=== PATIENT | male | born 1995 | race Caucasian/White ===

== ENCOUNTER 2017-04-20 14:33 | Emergency (ER) | payer MEDICAID ==
[~2017-04-20] VITALS: Ht 175.3 cm; Wt 63.5 kg
[~2017-04-20 14:33] MED LIST: ALEVE220 M1 PO; KEFLEX 500MG.500 MG PO; LORTAB 5/3251 TAB PO
--- OUTSIDE RECORDS SUMMARY | 2017-04-20 14:57 | External Medical Summary Rpt | CCD ---
Author Author , MADHU LEUNG Address Unknown Phone [email or web address] Care Team Providers Care Roofing Sales Representative Name Role Phone NED MARINO Unavailable Unavailable TRACEY, TRACEY Unavailable Unavailable [facility] & Unavailable Unavailable DUBILIER, [facility] DUBILIER COMMUNITY ANESTH OF Unavailable Unavailable THE BLUE, COMM[facility]ITY ANESTH OF THE BLUE [facility] Unavailable Unavailable INC, [facility], Unavailable Unavailable [facility] Unavailable Unavailable IMAGING [facility], [facility] BERNADINE COLINDRES Unavailable Unavailable [facility], Unavailable Unavailable PLLC, [facility], [facility] CLAIR SELF Unavailable Unavailable JEY KHANNA Unavailable Unavailable Purpose Continuity of Care Document - 07-11-2016 through 2016 Problems Code Diagnosis DOS Provider Status G8918 OTHER ACUTE 07-28-2016 [facility] POSTPROCEDU INC RAL PAIN R1031 RIGHT LOWER 07-28-2016 [facility] PAIN INC R109 UNSPECIFIED 07-28-2016 [place] [facility] [id number] DISRUPTION 07-26-2016 [facility] WOUND [facility], UNSPECIFIED [facility] INITIAL ENCOUNTER Z720 TOBACCO USE 07-26-2016 [facility] INC K353 ACUTE 07-11-2016 [facility] APPENDICIT[facility]IANS, S WITH [facility] LOCALIZED PERITONITIS K3580 UNSPECIFIED 07-11-2016 [facility] ACUTE SOHA & APPENDICITI DUBILIER S K3589 OTHER ACUTE 07-11-2016 [facility] APPENDICITI GROUP S K37 UNSPECIFIED 07-11-2016 COMMUNITY ANESTH OF APPENDICITI THE BLUE S R072 PRECORDIAL 07-11-2016 [facility] PAIN PHYSICIANS, [facility] R079 CHEST PAIN 07-11-2016 [place] UNSPECIFIED [facility]ING ASS Medications Na ND Rx Da Fi Fi Am Da Di Ph RX Ph St me C No te ll ll ou ys ag ar # ys at rm s nt no ma ic us Or Da si cy ia de te s n re d HY 00 01 02 [address] 40 -1 -1 .0 00 L- ti OC 60 6- 7- 00 02 MA ve OD 12 20 20 23 RT ON 30 17 17 87 -A 1 02 PH CE AR TA MA SD CY NO PH #5 EN 91 5- 32 5 Procedures Procedure [place] [address] [facility] ABDOMEN & 7 [facility] PELVIS INC INC W/CONTRAS T MATERIAL FINAL G9551 BLANCA TRACEY REPR ABD 7 MEDICAL IMAG STS IMAGING W/O ASS INCIDNT FND LES NTD: FINAL G9638 BLANCA TRACEY REPORTS 7 MEDICAL W/O DOC IMAGING 1/MORE ASS DOSE REDUCTION [facility] G0378 [facility] OBSERVATI 7 [facility] ON INC INC SERVICE PER HOUR LEVEL III 10859 [facility] SURG 7 [facility] PATHOLOGY INC INC GROSS&SHIV ROSCOPIC EXAM LEVEL III 49080 CHIPPS BERNADINE SURG 7 SOHA & PATHOLOGY [facility] GROSS&SHIV ROSCOPIC EXAM RADIOLOGI 42787 [facility] COLE C EXAM 7 MEM H[facility] CHEST 2 INC INC VIEWS FRONTAL&L [facility] G0378 [facility] CO[facility] OBSERVATI 7 MEM [facility] [place] [address] [facility] LIPASE [place] [address] [facility] ABDOMEN & 7 MEM HOSP MEM [facility]OS[facility] PELVIS INC INC W/CONTRAS T MATERIAL URNLS DIP 05121 [facility] COLE 7 [facility] STICK/TAB INC INC [place] [address] [facility] TROPONIN 7 MEM H[facility]P [facility] QUANTITAT INC INC ARSEN BLOOD 02970 [facility] COLE COUNT 7 MEM [facility] COMPLETE INC INC AUTO&AUTO DIFRNTL WBC ECG 32520 [facility] MARINO ROUTINE 7 [facility] W/LEAST P 12 LDS I&R ONLY ANESTHESI 64430 [facility] 7 ANESTH INTRAPERI OF THE TONEAL BLUE LOWER ABD W/LAPS NOS LAPAROSCO 02950 [facility] CLOE PIC 7 MEM H[facility]P [facility] APPENDECT INC INC ELYSSA COMPREHEN 01147 [facility] LORENZ 7 [facility] HOS[facility] METABOLIC INC INC PANEL Encounters Encounter Start End Date Code Location Performer Type Date [facility] OUTPATIEN INC T EMERGENCY 51300 [facility] 7 7 [facility] DEPARTMEN INC T VISIT LOW/MODER SEVERITY HOSPITAL [facility] 7 [facility] OUTPATIEN INC T EMERGENCY 69752 ARI[facility] SELF 7 7 PHYSICIAN DEPARTMEN S, [facility] T VISIT MODERATE SEVERITY HOSPITAL [facility] 7 [facility] OUTPATIEN INC T EMERGENCY 84003 [facility] GONSALEZT 7 7 [facility] VISIT INC HIGH SEVERITY& THREAT FUNJ
--- OUTSIDE RECORDS SUMMARY | 2017-04-20 14:57 | External Medical Summary Rpt | CCD ---
Author Author , MADHU LEUNG Address Unknown Phone [email or web address] Care Team Providers Care Relocation Coordinator Name Role Phone NED MARINO Unavailable Unavailable TRACEY, TRACEY Unavailable Unavailable [facility] & Unavailable Unavailable DUBILIER, [facility] DUBILIER COMMUNITY ANESTH OF Unavailable Unavailable THE BLUE, COMMUNITY ANESTH OF THE BLUE [facility] Unavailable Unavailable INC, [facility], Unavailable Unavailable [facility] Unavailable Unavailable IMAGING ASS, [facility] BERNADINE COLINDRES Unavailable Unavailable [facility], Unavailable Unavailable PLLC, [facility], [facility] CLAIR SELF Unavailable Unavailable JEY KHANNA Unavailable Unavailable Purpose Continuity of Care Document - 07-11-2016 through 2016 Problems Code Diagnosis DOS Provider Status G8918 OTHER ACUTE 07-28-2016 [facility] POSTPROCEDU INC RAL PAIN R1031 RIGHT LOWER 07-28-2016 [facility] PAIN INC R109 UNSPECIFIED 07-28-2016 [place] [facility] PAIN IM[facility]ING ASS [id number] DISRUPTION 07-26-2016 [facility] W[facility], UNSPECIFIED [facility] INITIAL ENCOUNTER Z720 TOBACCO USE 07-26-2016 [facility] INC K353 ACUTE 07-11-2016 [facility] APPENDICITI PH[facility]ICIANS, S WITH [facility] LOCALIZED PERITONITIS K3580 UNSPECIFIED 07-11-2016 [facility]IPPS ACUTE SOHA & APPENDICITI DUBILIER S K3589 OTHER ACUTE 07-11-[address] [facility] PHYSICIANS APPENDICITI GROUP S K37 UNSPECIFIED 07-11-2016 COMMUNITY ANESTH OF APPENDICITI THE BLUE S R072 PRECORDIAL 07-11-2016 [facility] PAIN PHYSICIANS, [facility] R079 CHEST PAIN 07-11-2016 [place] UNSPECIFIED MEDICAL IMAGING ASS Medications Na ND [...] 1 02 PH CE AR TA MA AK CY NO PH #5 EN 91 5- 32 5 Procedures Procedure [place] [address] [facility] ABDOMEN & 7 [facility] PELVIS INC INC W/CONTRAS T MATERIAL FINAL G9551 BLANCA TRACEY REPR ABD 7 MEDICAL IMAG STS IMAGING W/O ASS INCIDNT FND LES NTD: FINAL G9638 BLANCA TRACEY REPORTS 7 MEDICAL W/O DOC IMAGING 1/MORE ASS DOSE REDUCTION [facility] G0378 [facility] OBSERVATI 7 MEM [facility]OS[facility] ON INC INC SERVICE PER HOUR LEVEL III 28798 [facility] SURG 7 MEM H[facility]P [facility] PATHOLOGY INC INC GROSS&SHIV ROSCOPIC EXAM LEVEL III 42883 CHIPPS BERNADINE SURG 7 SOHA & PATHOLOGY [facility] GROSS&SHIV ROSCOPIC EXAM RADIOLOGI 34065 [facility] COLE C EXAM 7 MEM HOSP [facility] CHEST 2 INC INC VIEWS FRONTAL&L [facility] G0378 [facility] OBSERVATI 7 MEM [facility]OS[facility] [place] [address] [facility] CO[facility] LIPASE [place] [address] [facility] ABDOMEN & 7 MEM H[facility] MEM [facility]OS[facility] PELVIS INC INC W/CONTRAS T MATERIAL URNLS DIP 03722 [facility] COLE 7 [facility] STICK/TAB INC INC [place] [address] [facility] CO[facility] TROPONIN 7 MEM HOSP [facility] QUANTITAT INC INC ARSEN BLOOD 98958 [facility] COLE COUNT 7 MEM [facility] MEM [facility]OS[facility] COMPLETE INC INC AUTO&AUTO DIFRNTL WBC ECG 63124 [facility] MARINO ROUTINE 7 [facility] W/LEAST P 12 LDS I&R ONLY ANESTHESI 12550 [facility] 7 ANESTH INTRAPERI OF THE TONEAL BLUE LOWER ABD W/LAPS NOS LAPAROSCO 70081 [facility] COLE PIC 7 MEM HOSP [facility] APPENDECT INC INC ELYSSA COMPREHEN 48466 [facility] LORENZ 7 [facility] MEM [facility]OS[facility] METABOLIC INC INC PANEL Encounters Encounter Start End Date Code Location Performer Type Date [facility] OUTPATIEN INC T EMERGENCY 44640 [facility] 7 7 MEM [facility] DEPARTMEN INC T VISIT LOW/MODER SEVERITY HOSPITAL [facility] 7 [facility] OUTPATIEN INC T EMERGENCY 08229 [facility] SELF 7 7 PHYSICIAN DEPARTMEN S, [facility] T VISIT MODERATE SEVERITY HOSPITAL [facility] 7 [facility] OUTPATIEN INC T EMERGENCY 37915 K[facility] GONSALEZT 7 7 [facility] VISIT INC HIGH SEVERITY& THREAT FUNJ
--- OUTSIDE RECORDS SUMMARY | 2017-04-20 14:58 | External Medical Summary Rpt ---
Author Author MADHU Olson, [employer] Organization [employer] Address Unknown Phone Unavailable
--- OUTSIDE RECORDS SUMMARY | 2017-04-20 14:58 | External Medical Summary Rpt | CCD ---
Author Author , MADHU ROSESTEPHANIE Address Unknown Phone [email or web address] Care Team Providers Care Quality Engineer Medical Device Name Role Phone ADA IQBAL, ADA IQBAL Unavailable Unavailable BEINEKE, BEINEKE Unavailable Unavailable BESSON, BESSON Unavailable Unavailable TRACEY, TRACEY Unavailable Unavailable [facility] & Unavailable Unavailable DUBILIER, [facility] DUBILIER COMMUNITY ANESTH OF Unavailable Unavailable THE BLUE, COMMUNITY ANESTH OF THE BLUE [facility] Unavailable Unavailable INC, [facility], Unavailable Unavailable [facility] Unavailable Unavailable IMAGING ASS, [facility] BERNADINE COLINDRES Unavailable Unavailable [facility], Unavailable Unavailable PLLC, [facility] RENUSCH, RENUSCH Unavailable Unavailable CLAIR SELF Unavailable Unavailable JEY KHANNA Unavailable Unavailable Purpose Continuity of Care Document - 07-11-2016 through 2016 Problems Code Diagnosis DOS Provider Status G8918 OTHER ACUTE 07-28-2016 [facility] POSTPROCEDU INC RAL PAIN R1031 RIGHT LOWER 07-28-2016 [facility] [facility] PAIN INC R109 UNSPECIFIED 07-28-2016 [place] [facility] PAIN IMAGING ASS [id number] DISRUPTION 07-26-2016 [facility], UNSPECIFIED [facility] INITIAL ENCOUNTER Z720 TOBACCO USE 07-26-2016 [facility] INC K353 ACUTE 07-11-2016 [facility] APPENDICIT[facility] PHYSICIANS, S WITH PLL LOCALIZED PERITONITIS K3580 UNSPECIFIED 07-11-2016 [facility] ACUTE SOHA & APPENDICITI DUBILIER S K3589 OTHER ACUTE 07-11-2016 [facility] APPENDICITI GROUP S K37 UNSPECIFIED 07-11-2016 COMMUNITY ANESTH OF APPENDICITI THE BLUE S R072 PRECORDIAL 07-11-2016 [facility], PLLC R079 CHEST PAIN 07-11-2016 [place] UNSPECIFIED [facility]ICAL IMAGING ASS Medications Na ND Rx Da Fi Fi Am Da Di Ph RX Ph St me C No te ll ll ou ys ag ar # ys at rm s nt no ma ic us Or Da si cy ia de te s n re d HY 00 01 02 21 3 00 WA Ac 40 -1 -1 .0 00 L- ti OC 60 6- 7- 00 02 MA ve OD 12 20 20 23 RT ON 30 17 17 87 -A 1 02 PH CE AR TA MA OH CY NO PH #5 EN 91 5- 32 5 Procedures Procedure DOS Code Location Performer Comment FINAL G9638 BLANCA TRACEY REPORTS 7 MEDICAL W/O DOC IMAGING 1/MORE ASS DOSE REDUCTION TECH FINAL G9551 BLANCA TRACEY REPR ABD 7 MEDICAL IMAG STS IMAGING W/O ASS INCIDNT FND LES NTD: [place] [address] BLANCA TRACEY ABDOMEN & 7 MEDICAL PELVIS IMAGING W/CONTRAS ASS T [facility] G0378 [facility] OBSERVATI 7 [facility] ON INC INC SERVICE PER HOUR LEVEL III 56977 [facility] COLE SURG 7 [facility] PATHOLOGY INC INC GROSS&SHIV ROSCOPIC EXAM HOSPITAL G0378 [facility]LE OBSERVATI 7 MEM HOSP [facility] [place] [address] [facility] LIPASE 7 MEM [facility] MEM [facility]OS[facility] INC INC RADIOLOGI 09664 [facility] C EXAM 7 MEDICAL CHEST 2 IMAGING VIEWS ASS FRONTAL&L ATERAL LAPAROSCO 45275 [facility] ADA PIC 7 PHYSICIAN APPENDECT S GROUP ELYSSA COMPREHEN 86309 [facility] COLE SIVE 7 MEM HOSP [facility] METABOLIC INC INC PANEL ANESTHESI 84073 [facility] 7 ANESTH INTRAPERI OF THE TONEAL BLUE LOWER ABD W/LAPS NOS LEVEL III 86648 CHIPPS BERNADINE SURG 7 SOHA & PATHOLOGY DUBILIER GROSS&[place] [address] [place] [facility] ABD[facility] & 7 MEDICAL PELVIS IMAGING W/CONTRAS ASS T MATERIAL ECG 18204 [facility] MARINO ROUTINE 7 [facility]PITAL W/LEAST P 12 LDS I&R ONLY URNLS DIP 50763 [facility] COLE 7 MEM H[facility] STICK/TAB INC INC [place] [address] [facility] CO[facility] TROPONIN 7 MEM HOSP MEM HOSP QUANTITAT INC INC ARSEN BLOOD 70013 [facility] COLE COUNT 7 [facility] COMPLETE INC INC AUTO&AUTO DIFRNTL WBC Encounters Encounter Start End Date Code Location Performer Type Date [facility] - 7 7 [facility] OUTPATIEN INC T EMERGENCY 88204 [facility] 7 7 [facility] DEPARTMEN INC T VISIT LOW/MODER SEVERITY EMERGENCY 12810 [facility] SELF 7 7 PHYSICIAN DEPARTMEN S, [facility] T VISIT MODERATE SEVERITY HOSPITAL [facility] - 7 7 [facility] OUTPATIEN INC T EMERGENCY 69807 [facility] TAM DEPT 7 7 PHYSICIAN VISIT S, [facility] HIGH SEVERITY& THREAT [facility] KELSEY - 7 7 [facility] OUTPATIEN INC T
--- OUTSIDE RECORDS SUMMARY | 2017-04-20 14:58 | External Medical Summary Rpt | CCD ---
Demographics Preferred Language Maltese Marital Status Unknown Islam Affiliation Unknown Race Unknown Ethnic Group Unknown Author Author , MADHU LEUNG Address Unknown Phone Immunization No patient found.
--- OUTSIDE RECORDS SUMMARY | 2017-04-20 14:58 | External Medical Summary Rpt | CCD ---
Author Author , MADHU ROSESTEPHANIE Address Unknown Phone [email or web address] Care Team Providers Care Audio Visual Collections Coordinator Name Role Phone ADA IQBAL, ADA IQBAL Unavailable Unavailable BEINEKE, BEINEKE Unavailable Unavailable BESSON, BESSON Unavailable Unavailable TRACEY, TRACEY Unavailable Unavailable [facility] & Unavailable Unavailable DUBILIER, [facility] DUBILIER COMMUNITY ANESTH OF Unavailable Unavailable THE BLUE, [facility]ITY ANESTH OF THE BLUE [facility] Unavailable Unavailable INC, [facility], [facility]available Unavailable [facility] Unavailable Unavailable IMAGING ASS, [facility] BERNADINE COLINDRES Unavailable Unavailable [facility], Unavailable Unavailable PLLC, [facility] RENUSCH, RENUSCH Unavailable Unavailable CLAIR SELF Unavailable Unavailable JEY KHANNA Unavailable Unavailable Purpose Continuity of Care Document - 07-11-2016 through 2016 Problems Code Diagnosis DOS Provider Status G8918 OTHER ACUTE 07-28-2016 [facility] POSTPROCEDU INC RAL PAIN R1031 RIGHT LOWER 07-28-2016 [place] [facility] PAIN INC R109 UNSPECIFIED 07-28-2016 [place] [facility] IM[facility] ASS [id number] DISRUPTION 07-26-2016 [facility] W[facility], UNSPECIFIED [facility] INITIAL ENCOUNTER Z720 TOBACCO USE 07-26-2016 [facility] INC K353 ACUTE 07-11-2016 [facility] APPENDICIT[facility] PHYSICIANS, S WITH PLL LOCALIZED PERITONITIS K3580 UNSPECIFIED 07-11-2016 [facility] ACUTE SOHA & APPENDICITI DUBILIER S K3589 OTHER ACUTE 07-11-2016 [facility] APPENDICITI GROUP S K37 UNSPECIFIED 07-11-2016 COMMUNITY ANESTH OF APPENDICITI THE BLUE S R072 PRECORDIAL 07-11-2016 [facility], PLLC R079 CHEST PAIN 07-11-2016 [place] UNSPECIFIED [facility]ING ASS Medications Na ND [...] 1 02 PH CE AR TA MA TN CY NO PH #5 EN 91 5- 32 5 Procedures Procedure DOS Code Location Performer Comment FINAL G9638 BLANCA TRACEY REPORTS 7 MEDICAL W/O DOC IMAGING 1/MORE ASS DOSE REDUCTION TECH FINAL G9551 BLANCA TRACEY REPR ABD 7 MEDICAL IMAG STS IMAGING W/O ASS INCID[place] F[place]: [place] [address] BLANCA TRACEY ABDOMEN & 7 MEDICAL PELVIS IMAGING W/CONTRAS ASS T [facility] G0378 [facility] OBSERVATI 7 MEM HOS[facility]OS[facility] ON INC INC SERVICE PER HOUR LEVEL III 83047 [facility] COLE SURG 7 [facility] PATHOLOGY INC INC GROSS&SHIV ROSCOPIC EXAM HOSPITAL G0378 [facility] COLE OBSERVATI 7 MEM HOSP MEM [facility]OS[facility] [place] [address] [facility] COLE LIPASE 7 MEM HOSP MEM HOSP INC INC RADIOLOGI 27581 [facility] C EXAM 7 MEDICAL CHEST 2 IMAGING VIEWS ASS FRONTAL&L ATERAL LAPAROSCO 20117 [facility] ADA PIC 7 PHYSICIAN APPENDECT S GROUP ELYSSA COMPREHEN 41064 [facility] COLE SIVE 7 MEM HOSP [facility] METABOLIC INC INC PANEL ANESTHESI 53734 [facility] 7 ANESTH INTRAPERI OF THE TONEAL BLUE LOWER ABD W/LAPS NOS LEVEL III 34336 CHIPPS BERNADINE SURG 7 SOHA & PATHOLOGY DUBILIER GROSS&[place] [address] [facility] & 7 MEDICAL PELVIS IMAGING W/CONTRAS ASS T MATERIAL ECG 36833 KEL[facility] MARINO ROUTINE 7 [facility] HOSPITAL W/LEAST P 12 LDS I&R ONLY URNLS DIP 93993 [facility] COLE 7 MEM HOSP MEM HOSP STICK/TAB INC INC [place] [address] [facility] COLE TROPONIN 7 MEM HOSP MEM HOSP QUANTITAT INC INC ARSEN BLOOD 86718 [facility] COLE COUNT 7 [facility] COMPLETE INC INC AUTO&AUTO DIFRNTL WBC Encounters Encounter Start End Date Code Location Performer Type Date [facility] K[facility] - 7 7 [facility] OUTPATIEN INC T EMERGENCY 80988 KELSEY 7 7 [facility] DEPARTMEN INC T VISIT LOW/MODER SEVERITY EMERGENCY 69681 [facility] SELF 7 7 PHYSICIAN DEPARTMEN S, [facility] T VISIT MODERATE SEVERITY HOSPITAL K[facility]Y - 7 7 [facility] OUTPATIEN INC T EMERGENCY 32729 ARIADNA TAM DEPT 7 7 PHYSICIAN VISIT S, [facility] HIGH SEVERITY& THREAT [facility] KELSEY - 7 7 [facility] OUTPATIEN INC T
--- OUTSIDE RECORDS SUMMARY | 2017-04-20 14:58 | External Medical Summary Rpt | CCD ---
Demographics Preferred Language Faroese Marital Status Unknown Hindu Affiliation Unknown Race Unknown Ethnic Group Unknown Author Author , MADHU LEUNG Address Unknown Phone Immunization No patient found.
[2017-04-20] MEDS ORDERED: NAPROXEN SODIU500 MG PO (15:09)
--- NOTE | 2017-04-20 15:09 | Emergency Room Report ---
History of Present Illness Time Seen by MD Acosta Presenting Problem in Triage Pt arrived:Walked Presenting Problem:PT C/O RIGHT ARM PAIN AND ADVISES THE PAIN GOES INTO HIS SHOULDER. 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 N Clinical Suspician of Infection? N Mental Status: 1 - Regular (Normal Baseline) Sepsis Risk:Low Sepsis Risk Have you (or family members/close friends) recently traveled outside the [place]? N If Yes, where/when: Have you had exposure to infectious disease within the past month? N TB? Other? 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 No weakness, no numbness, no discoloration of limb. No neck pain. No relief with OTC meds. ALLERGIES Coded Allergies: brompheniramine (From DIMETAPP COLD-ALLERGY (PE)) (07/11/16) phenylephrine (From DIMETAPP COLD-ALLERGY (PE)) (07/11/16) History Medical History General CAD? No Angina: No MA: No Hypertension? No Hyperlipidemia? No CHF? No DVT? No PE? No COPD? No Asthma? No Anemia? No GERD? No Gastric ulcers? No GI Bleed? No Hernia? No Thyroid Problems? No Hypothyroidism? No CVA? No Seizures? No Diabetes? No Renal Insuffiency? No End Stage Renal Disease? No UTI? No Stones? No BPH? No GB Disease: No Nephritic Syndrome? No Asplenia? No Hepatitis? No Sickle Cell Disease? No Arthritis? No Migraines? No Cataracts? No Glaucoma? No MRSA? No HIV? No TB? No Anxiety? No Depression? No Cancer? No More? No Immunization Hx DT/Tetanus 1-4 Years Ago Flu Refused Pneumonia Refuses Surgical Hx Previous Surgery?Y LAP APPY 07/11/16 Family History Family Hx Diabetes No CAD No Hypertension Yes Hyperlipidemia Yes Cancer Yes TB No Social History Smoking Hx Smoker: Current Every Day Smoker Tobacco: Yes Type Cigarettes Packs/day < 1 Pack Alcohol Alcohol: No Review of Systems All Other Systems Reviewed and Negative Musculoskeletal see HPI Physical Exam Vital Signs Vital Signs Date Time Temp Pulse Resp B/P Pulse O2 O2 Flow FiO2 Ox Delivery Rate 04/20 1513 98.3 97 16 140/80 99 04/20 1435 98.3 97 16 140/80 99 General Appearance normal appearance, WD/WN, no apparent distress Eye Exam - bilateral eye normal exam, bilateral eye PERRL Neck supple, full range of motion Respiratory Status Yes: trachea midline. No: respiratory distress. Cardiovascular no peripheral edema, normal peripheral pulses Extremities normal range of motion, normal inspection, Tenderness over rotator cuff; no crepitus, deformities, or stepoffs noted; pain with ROM but able to perform complete ROM; n/v intact with good sensation over r/u/m/ax nerves as checked. Brisk CR, well perfused limb, warm hand/digits. Strength 5 Upper Ext (L), 5 Upper Ext (R), 5 Lower Ext (L), 5 Lower Ext (R) Neurologic alert, normal exam, no motor/sensory deficits Glascow Coma Scale Glascow Coma Scale Response Value EYE response: 4 Spontaneously 4 MOTOR response: 6 OBEYS 6 VERBAL response: 5 Oriented & Converses 5 Total 15 Skin intact Medical Decision Making LABS/Meds/Orders Pt receiving controlled substance in ED? No Departure Departure Time of Disposition 1507 Disposition DC Home or Self Care(routine) Clinical Impression Primary Impression: Rotator cuff strain Qualifiers: Encounter type: initial encounter Laterality: right Qualified Code: S46.011A - Strain of muscle(s) and tendon(s) of the rotator cuff of right shoulder, initial encounter Condition STABLE Referrals Enriqueta EDWARDS,David Cash (PCP/Family) Patient Instructions DI for Rotator Cuff Injury Additional Instructions Rx Naproxen, see Dr. Robison, one week. Discharge Counseling Counseled pt/family regarding diagnosis, medications/RX, home care, follow up needs Prescriptions Current Visit Scripts NAPROXEN (NAPROXEN 500MG TAB) 500 MG PO BIDP PRN pain #20 TAB ED Critical Care Critical Care No at 2019
[2017-04-20 15:13] VITALS: BP 140/80
== END 2017-04-20 15:13 | disposition home or self-care (01) ==
LOC: ER 14:33
DX: S46.011A Strain of muscle(s) and tendon(s) of the rotator cuff of right shoulder, initial encounter (principal); X50.3XXA Overexertion from repetitive movements, initial encounter; Y93.61 Activity, american tackle football